=== PATIENT | male | born 1990 | race Caucasian/White ===

== ENCOUNTER 2017-08-12 18:20 | Emergency (ER) | payer OTHER ==
[2017-08-12] MEDS ORDERED: DIPH,PERTUS(ACELL)TETVAC-LF 0.5 ML VIAL IM ONE (18:59)
--- NOTE | 2017-08-12 19:23 | XR ---
EXAMINATION TYPE: XR hand complete RT DATE OF EXAM: 08/12/2017 CLINICAL HISTORY: Male, foreign body within right hand. TECHNIQUE: Frontal, lateral and oblique images of the right hand are obtained. COMPARISON: None. FINDINGS: There is no acute fracture/dislocation evident in the right hand. The joint spaces in the right hand appear within normal limits. The known foreign body nail is located within the volar surfa ce of the hand is situated between the first and second metacarpals oriented towards the thenar emine nce. This does not abut cortical surfaces and creates no cortical disruption. Soft tissue swelling is seen. IMPRESSION: Foreign body of a nail located between the first and second metacarpal within the soft ti ssues oriented towards the thenar eminence. This does not approach osseous structures and there is no evidence of fracture or dislocation..
[2017-08-12] MEDS ORDERED: HYDROcodone/APAP 5-325MG 1 EACH TAB PO STA (19:39)
--- NOTE | 2017-08-12 19:44 | ED ---
Skin/Abscess/FB HPI - General Chief complaint: Skin/Abscess/Foreign Body Stated complaint: [facility] nail in hand (nail gun) Time Seen by Provider: 08/12/17 18:56 Source: patient Mode of arrival: ambulatory Limitations: no limitations - History of Present Illness Initial comments: 27-year-old male patient presents to emergency department today for evaluation after accidentally shooting his hand with a nail gun while at work. Patient still has the nail embedded in his hand. Patient does not believe there is bone involved. He states this occurred approximately 1 hour prior to arrival. Patient states he is having some minimal pain to the area. Patient is unsure when his last tetanus vaccine was. He denies any other injuries. Denies any other physical concerns. - Related Data Previous Rx's Medication Instructions Recorded Cephalexin [Keflex] 500 mg PO Q6H #28 cap 08/12/17 Allergies Allergy/AdvReac Type Severity Reaction Status Date / Time No Known Allergies Allergy Verified 08/12/17 19:02 Review of Systems ROS Statement: Those systems with pertinent positive or pertinent negative responses have been documented in the HPI. ROS Other: All systems not noted in ROS Statement are negative. Past Medical History Past Medical History: No Reported History History of Any Multi-Drug Resistant Organisms: None Reported Additional Past Surgical History / Comment(s): hernia Past Psychological History: No Psychological Hx Reported Smoking Status: Current every day smoker Past Alcohol Use History: Occasional Past Drug Use History: None Reported General Exam Limitations: no limitations General appearance: alert, in no apparent distress, other (Well-developed, well- nourished male in no acute distress. Vital signs upon admission are temperature 98.2, pulse 98, respirations 20, blood pressure 154/105, pulse ox 98.) Respiratory exam: Present: normal lung sounds bilaterally. Absent: respiratory distress, wheezes, rales, rhonchi, stridor Cardiovascular Exam: Present: regular rate, normal rhythm, normal heart sounds. Absent: systolic murmur, diastolic murmur, rubs, gallop, clicks Extremities exam: Present: full ROM, normal capillary refill, other (Patient does have a nail protruding from the hand, entrance is in the palmar aspect of the hand between the first and second fingers. Patient is able to move all fingers, skin is pink, warm, and dry. Cap refill less than 3 seconds.). Absent : tenderness, pedal edema, joint swelling, calf tenderness Neurological exam: Present: alert, oriented X3, CN II-XII intact Psychiatric exam: Present: normal affect, normal mood Skin exam: Present: warm, dry, intact, normal color. Absent: rash Course Vital Signs 08/12/17 08/12/17 18:49 19:58 Temperature 98.2 F 98 F Pulse Rate 90 78 Respiratory 20 18 Rate Blood Pressure 154/105 132/66 O2 Sat by Pulse 98 97 Oximetry Medical Decision Making - Medical Decision Making 27-year-old male patient presents for evaluation of a nail in his right hand. The patient sustained this injury at work. X-ray was obtained and showed no cortical disruption. Nail was removed from the hand. This did cause patient pain. He was given Declo. Did attempt to irrigate the area however patient stated this was too painful. Did soak hand in a Betadine and water solution. Patient was given a prescription for Keflex 1 week. He is instructed to monitor for signs or symptoms of infection. He was instructed to follow-up with his primary care physician for recheck in 1-2 days. He was instructed to return here immediately for any new, worsening, or concerning symptoms. He verbalizes understanding agrees this plan. - Radiology Data Radiology results: report reviewed, image reviewed Interpreted by me: Frontal, lateral, and oblique images of the right hand are obtained. Findings show no acute fracture or dislocation evident. The joints spaces in the right hand appear within normal limits. Did note foreign body nail is located within the volar surface of the hand is situated between the first and second metacarpals oriented towards the thenar eminence. This does not about cortical surfaces and creates no cortical disruption. Soft tissue swelling is seen. Impression by Dr. Concepcion shows foreign body of a nail located in the first and second metacarpal with the soft tissues oriented towards the thenar eminence. This does not approach osseous structures and there is no evidence of fracture or dislocation. Disposition Clinical Impression: Puncture wound of skin from metal nail Disposition: HOME SELF-CARE Condition: Good Instructions: Puncture Wound (ED) Additional Instructions: Take [id number] Tylenol or ibuprofen for pain control. Monitor hand for signs or symptoms of infection including redness, swelling, drainage of pus, fever, or chills. Complete antibiotic prescription and full. Return here immediately for any new, worsening, or concerning symptoms. Prescriptions: Cephalexin [Keflex] 500 mg PO Q6H #28 cap Referrals: None,Stated [Primary Care Provider] - 1-2 days Time of Disposition: 19:44
[2017-08-12 20:08] VITALS: BP 132/66; PULSE 78; RESP 18; TEMP 98
== END 2017-08-12 20:08 | disposition home or self-care (01) ==
LOC: EC 18:20
DX: S61.441A Puncture wound with foreign body of right hand, initial encounter (principal); F17.200 Nicotine dependence, unspecified, uncomplicated; Z23 Encounter for immunization; W29.4XXA Contact with nail gun, initial encounter; Y92.69 Other specified industrial and construction area as the place of occurrence of the external cause; Y99.0 Civilian activity done for income or pay
CPT/HCPCS: 90471; 90715; 99283